=== PATIENT | female | born 1980 | race Caucasian/White ===

== ENCOUNTER 2020-10-16 03:01 | Emergency (ER) | payer SELFPAY ==
[2020-10-16 03:02] VITALS: BP 140/97; PULSE 61; RESP 18; TEMP 36.5; O2SAT 98; BMI 32.5
--- NOTE | 2020-10-16 03:18 | CT_ITS ---
STUDY: CT BRAIN WITHOUT CONTRAST REASON FOR EXAM: Female, 40 years old. Headache RADIATION DOSAGE (If Supplied By Facility): CTDIvol = ( 44.99 ) mGy, DLP = ( 745.49 ) mGycm TECHNIQUE: Transaxial CT imaging of the brain was performed without administration of intravenous contrast material. Individualized dose optimization techniques were used for this CT. COMPARISON: No relevant priors. FINDINGS: Normal soft tissue structures. Normal calvarium. Normal size ventricles and extra-axial spaces for the patient''s age. Normal white matter tracts of the cerebral hemispheres. Normal basal ganglia and thalami. Normal brainstem. Normal cerebellum. There is no intracranial hemorrhage. There are no findings of an acute ischemic infarction. Normal visualized paranasal sinuses. CT/Brain/Head without Contrast IMPRESSION: No acute intracranial abnormality. Electronically Signed: Arturo Garcia MD at 3:52 EDT Tel , Service support ,
[2020-10-16] MEDS: 0.9% Normal Saline 1,000 ML 999 ML IV (03:34)
[2020-10-16] MEDS: proCHLORPERazine 10 MG/2 ML Vial IV (03:34)
--- NOTE | 2020-10-16 03:47 | ED.VIS.GEN ---
History of Present Illness Chief Complaint: Headache Informant: Patient Onset: Yesterday Context: Sudden Onset Timing: Continuous Narrative: Patient is a 40-year-old female with history of hypertension presenting with headache. Patient states it started yesterday evening before she went to bed. She states it came on suddenly. She states is for the same intensity since it started but now it is worse with movement of her head. The pain is localized to the left side of her head. She states is constant nature but worse when she moves her head. She notes she has radiation pain down into her left shoulder. She denies any associated vision changes or photophobia. States she has a history of tension headaches but this does not feel like it. She denies any history of migraines. She has some associated nausea but no vomiting. No fevers. No rash. States that she is especially concerned because her grandfather had aneurysm associate with hypertension. Prior similar symptoms: No Past Medical History - Allergies and Home Meds Allergies/Adverse Reactions: Allergies No Known Allergies Allergy (Verified 10/16/20 03:04) Primary Care Physician: Tal Márquez MD [NON-STAFF] - Past Medical History: - - Hypertension Surgical History: noncontributory Smoking Status: Former smoker Review of Systems General: Denies: Chills, Fever, Sweats Eyes: Denies: Visual changes - bilaterally, Blurred Vision - bilaterally, Diplopia ENT: Denies: Rhinorrhea, Sore throat Cardiovascular: Denies: Chest pain, Palpitations Respiratory: Denies: Dyspnea, Cough, Dyspnea on exertion Gastrointestinal: Reports: Nausea, Hematochezia. Denies: Abdominal pain, Vomiting, Diarrhea Genitourinary: Denies: Dysuria, Hematuria, Frequency Musculoskeletal: Denies: Back pain, Extremity Pain Skin: Denies: Rash, Wounds Neurological: Reports: Headache. Denies: Weakness, Parasthesia, Numbness Physical Exam Vital Signs/Narrative: Vital Signs Temp Pulse Resp BP Pulse Ox 10/16/20 03:02 97.7 F L 61 18 140/97 H 98 Inital Vital Signs reviewed: Yes General: Well nourished, Well developed, No Acute Distress Head: Normocephalic, Atraumatic Eyes: Perrl, EOMI ENT: Moist mucous membranes, No rhinorrhea Neck: Supple, No lymphadenopathy, No JVD, - - Tenderness palpation over the left paraspinal muscles and left upper trapezius. No midline tenderness. No nuchal rigidity. Cardiovascular: Regular rate, Regular rhythm, No murmurs Respiratory: No distress, CTA bilaterally, Chest nontender Abdomen: Soft, Nontender, Nondistended, Normal bowel sounds Back: Nontender, Normal Inspection Extremities: Nontender, No edema Skin: Normal color, No rash Neurological: Alert, Oriented x3, Cranial nerves II-XII grossly intact, Normal Strength, Normal Sensation, Normal Gait. Negative for: Parasthesia, Weakness Psychological: Normal affect, Normal Mood Diagnostic/Tx/Re-eval Diagnostic Data Brain CT 10/16/20 03:18 IMPRESSION: No acute intracranial abnormality. Electronically Signed: Arturo Garcia MD at 3:52 EDT Tel , Service support , - Medical Decision Making Patient evaluated for headache. She is concerned because it is more one-sided which is abnormal for her. She has associated neck pain and muscle spasm of the shoulder. She has a family history of aneurysm with her grandfather however she states that secondary to hypertension patient is not significantly hypertensive. Head CT obtained as her symptoms started within the last 6 hours. It does not show any acute process. She has a normal neurologic exam. I do not think she has a subarachnoid hemorrhage and I do not think CTA of the head or LP is indicated at this time. Patient is treated with Compazine and then Toradol after the CT returned. Patient states she does have improvement of her headache. She still has a little pain with movement laterally of her neck. Patient be discharged home to take ibuprofen and with a prescription of Flexeril. She is given a work note per her request. Patient is counseled on signs and symptoms requiring return to the emergency room. Patient verbalizes agreement and understand this plan. Patient discharged home in stable and improved condition. ED Disposition - Plan for ED Patient: Disposition: Home or Assisted Living Diagnosis: Tension headache Instructions: ED Headache, Tension Prescriptions: cycloBENZAPRine HCl [Flexeril] 10 mg PO TID PRN #20 tab PRN Reason: Muscle Spasm Transmission Status: Pending to [facility]/pharmacy #[id number] Referrals: Tal Márquez MD [NON-STAFF] - Additional Instructions: I suspect your headache is from muscle spasm/pain in your neck and shoulder. You have been prescribed a muscle relaxer. You can also take ibuprofen to help with pain.
[2020-10-16] MEDS: Ketorolac 15 MG/ML Vial IV (04:04)
[2020-10-16 04:51] VITALS: BP 136/60; PULSE 61; RESP 18; O2SAT 97
== END 2020-10-16 04:52 | disposition home or self-care (01) ==
PROVIDERS: Emergency Provider Emergency Medicine
DX: G44.209 Tension-type headache, unspecified, not intractable (principal); I10 Essential (primary) hypertension; Z79.899 Other long term (current) drug therapy; Z87.891 Personal history of nicotine dependence; Z82.49 Family history of ischemic heart disease and other diseases of the circulatory system
CPT/HCPCS: 70450; 96361; 96374; 96375; 99284